=== PATIENT | female | born 1950 | race Caucasian/White ===

== ENCOUNTER 2021-02-11 23:00 | Emergency (ER) | payer MEDICARE ==
[~2021-02-11] VITALS: Ht 157.5 cm; Wt 95.3 kg
[~2021-02-11 23:00] MED LIST: [UNRECOGNIZED DRUG - OTHER] PO
--- NOTE | 2021-02-11 23:30 | NUR ---
PT AMBULATED TO ER WITH C/O LT RIB PAIN, HX [facility] [address] VIERA AT BEDSIDE, MSE IN PROGRESS.
--- NOTE | 2021-02-11 23:45 | NUR ---
XRAY AT BEDSIDE.
--- NOTE | 2021-02-12 00:58 | NUR ---
Patient discharged to home in stable condition. Denies any pain/discomfort upon discharge. Written and verbal after care instructions given. Patient verbalizes understanding of instructions. Stressed follow up or return to ER for worsening s/s. Steady gait.
[2021-02-12 01:07] VITALS: BP 142/72
== END 2021-02-12 01:08 | disposition home or self-care (01) ==
LOC: ER 23:02
DX: R07.81 Pleurodynia (principal); J90 Pleural effusion, not elsewhere classified; Z85.3 Personal history of malignant neoplasm of breast; Z90.710 Acquired absence of both cervix and uterus; E06.3 Autoimmune thyroiditis
CPT/HCPCS: 71045; 93005; A4663